=== PATIENT | female | born 1955 | race Caucasian/White ===

== ENCOUNTER → 2016-04-21 | Outpatient (CLI) | payer OTHER ==
[~2016-04-21] MED LIST: BUTA1TAB70 PO; CEPH500C2 PO; HYDR-5688 PO; IBUP-103 PO; LORA10CA2 PO; VITAMIN B12 PO; VITAMIN D PO; ZANTAC PO
--- NOTE | 2016-04-21 11:29 | Discharge Instructions ---
Discharge Instructions Procedure Procedure Date: Apr 21, 2016. Reason for visit: Bilateral Cals. Discharge Discharge Date: Apr 21, 2016. Discharge Diagnosis: post bilateral breast stereotactic guided biopsy Instructions Activity Recommendations: Additional Limitations (see below) Return to School/Work: no limitations Recommended Home Diet: No Limitations Provider Instructions: ACTIVITY RECOMMENDATIONS: * No lifting, pushing, pulling or exercising the affected side for three days. RETURN TO SCHOOL/WORK: * You may return to work/school after the procedure, but do not perform any strenuous activities for 24 to 48 hours. MEDICATIONS: * Tylenol (two 325 mg) every four to six hours if needed for mild pain (if not allergic to Tylenol). DIET: * Resume previous diet. SPECIAL CARE INSTRUCTIONS: * Keep biopsy site dry for 24 hours. May shower after 24 hours, but do not soak (bathe) incision. * May remove Tegaderm (plastic patch) tomorrow AFTER showering. * Leave the steri-strips on for one week. Allow the steri-strips to fall off by themselves. If not off after one week, you may remove them. You may place a Bandaid crosswise over the strips, if desired. * Apply ice 10 minutes on and 10 minutes off as needed. * Wear a bra at bedtime to sleep more comfortably for 2-3 days. * Your referring physician should have the results after approximately 5 to 7 business days. * Call for unusual bleeding, fever, drainage, etc or if you have any questions call [phone] during normal business hours or after hours call Dr Jacobs, . FOLLOW UP VISIT: Follow-up with Referring Physician as scheduled. Allergies Coded Allergies: No Known Allergies (Unverified , 03/25/16) Marisol Dobbins Recommendations: Call your doctor if: * Temperature above 101 degrees * Pain not relieved by pain medicine ordered * There is increased drainage or redness from any incision * You have any unanswered questions or concerns. Your Doctors Instructions noted above were prepared by provider Marce Jacobs. Patient Signature Section: Patient Instructions Signature Page Jessica Perez Patient (or Guardian) Signature/Date: I have read and understand the instructions given to me by my caregivers. Caregiver/RN/Doctor Signature/Date: The above-named patient and/or guardian has received patient instructions on this date. + Original Patient Signature Page (only) stays with chart. Please make copy for patient.
--- NOTE | 2016-04-23 08:29 | MAMMOGRAPHY REPORT ---
STEREOTACTIC GUIDED BIOPSY: 04/21/2016 CLINICAL HISTORY: Indeterminate clustered micro-calcifications in the lower outer left breast, and a pproximately 12:00 right breast. Patient presents for stereotactic guided biopsy in each breast. Please refer to the report from right breast stereotactic guided biopsy performed at the same time f or full detail. IMPRESSION: STEREOTACTIC GUIDED BIOPSY Please refer to the report from right breast stereotactic guided biopsy performed at the same time f or full detail. Marce Jacobs M.D. ay/:04/21/2016 11:58:17 Thread Reeler: Jany FERRARA(Armaan)(M), [facility]
--- NOTE | 2016-04-23 08:41 | MAMMOGRAPHY REPORT ---
ULTRASOUND OF BOTH BREASTS: 04/21/2016 CLINICAL HISTORY: Bilateral axillary ultrasound to assess for any abnormal lymphadenopathy. COMPARISON: Comparison is made to exams dated: 04/21/2016 mammogram, 04/21/2016 stereotactic biopsy, 04/06/2016 ultrasound biopsy, 03/24/2016 breast MRI - [facility], 09/23/2015 breast MRI, and 06/22/2014 mammogram - [facility]. FINDINGS: Real-time high-resolution ultrasound was performed in each axilla. Several morphologicall y normal lymph nodes within cortices are identified within the right axilla. However, there is one lymph node with a mildly thickened cortex that measures up to 3.9 mm. Near the right axillary tail that is suspicious for metastatic disease. Within the left axilla. Morphologically normal lymph no melisa are seen without evidence of suspicious adenopathy. IMPRESSION: ACR BI-RADS CATEGORY 6: KNOWN BIOPSY PROVEN MALIGNANCY Bilateral axillary ultrasound demonstrates a single lymph node in the right axilla with a cortex henna suring up to 3.9 mm, that is suspicious for metastatic disease. No other suspicious axillary lympha denopathy is identified on ultrasound. Marce Jacobs M.D. ay/:04/21/2016 12:17:35 Cathead Operator: Jany FERRARA(Armaan)(Abby), [facility] BI-RADS Code: ACR BI-RADS Category 6: Known Biopsy Proven Malignancy
--- NOTE | 2016-04-23 08:46 | MAMMOGRAPHY REPORT ---
BILATERAL DIGITAL DIAGNOSTIC MAMMOGRAM: 04/21/2016 CLINICAL HISTORY: Status post stereotactic guided biopsy of clustered microcalcifications within eac h breast. Current history of biopsy proven bilateral breast cancer. Please refer to the report from right breast stereotactic guided biopsy performed at the same time f or full detail. IMPRESSION: POST PROCEDURE IMAGING FOR MARKER PLACEMENT Please refer to the report from right breast stereotactic guided biopsy performed at the same time f or full detail. Approximately 10% of breast cancers are not detected with mammography. A negative mammographic repor t should not delay biopsy if a clinically suggestive mass is present. Marce Jacobs M.D. ay/:04/21/2016 11:59:29 Court Operations Clerk: Jany FERRARA(Armaan)(M), [facility] BI-RADS Code: Post Procedure Imaging For Marker Placement
== END | disposition home or self-care (01) ==
LOC: C.MAMM 09:19
PROVIDERS: ATTEND Surgery
DX: R92.1 Mammographic calcification found on diagnostic imaging of breast (principal); C50.912 Malignant neoplasm of unspecified site of left female breast

== ENCOUNTER → 2016-05-10 | Outpatient (CLI) | payer OTHER ==
[~2016-05-10] MED LIST changes: +CEFAZOLIN IV 2,000 MG/60 ML D5W IV ONE; +MED FOR ITCHING PO
--- NOTE | 2016-05-10 13:13 | DIAGNOSTIC IMAGING REPORT ---
PET/CT HISTORY: BREAST CANCER TECHNIQUE: PET/CT was performed from the base of the skull through the pelvis following the intravenous administration of 13.12 mCi of F18-FDG. Non-contrast CT imaging was performed over the same range without breath-hold for attenuation correction of PET images and anatomic correlation, but not for primary interpretation as it is not of standard diagnostic quality. CT DOSE: COMPARISON: None. FINDINGS: HEAD AND NECK: There are symmetric FDG uptake within the brain. Small focal areas of asymmetrically increased FDG uptake within the right adenoid and palatine tonsils seen on images 19 and 31. These demonstrate an SUV max of 3.4. There is mild fullness along the right palatine tonsil at this level. No enlarged or FDG avid cervical lymph nodes. CHEST: No enlarged or FDG avid mediastinal, hilar, or axillary lymph nodes. Patchy mild FDG uptake within the lateral aspect of the bilateral breasts, right greater the left. These demonstrate an SUV max within the right breast of 2.0. No FDG avid pulmonary nodules. There is a 4 mm subpleural nodular density within the right middle lobe on image 93. ABDOMEN/PELVIS: Below the diaphragm, tracer is distributed physiologically in the gastrointestinal and genitourinary tracts. There is no significant lymphadenopathy and no FDG-avid disease. No FDG avid hepatic or splenic lesions. Normal adrenal glands. MUSCULOSKELETAL: There is no FDG-avid or destructive bone lesion. A 6 mm sclerotic focus within the superior endplate of L5 does not demonstrate abnormal FDG uptake. Minimal patchy FDG uptake within the marrow of the spine and and pelvis may be physiologic. No focal areas of FDG uptake identified within the visualized osseous structures. IMPRESSION: 1. Mild FDG uptake seen within the lateral aspects of the breasts, right greater than left. This could be physiologic or related to recent biopsy changes. Underlying malignancy could also a similar appearance. Please correlate with recent mammography findings. 2. Mild FDG uptake seen within the right adenoid and palatine tonsils with mild fullness of the right palatine tonsil as described above. This could be due to mild infectious process. Direct visualization or at a minimum imaging follow up is recommended to ensure stability/resolution. 3. Minimal patchy FDG uptake within the marrow of the spine and pelvis without focal abnormality to suggest metastatic disease. 4. A 4 mm subpleural nodule within the right middle lobe. This does not demonstrate abnormal FDG uptake but is likely below the threshold for PET imaging. This also bears watching on future examinations. Electronically signed by: Marcelo Pa M.D. 05/10/2016 1:12 PM Dictated Date/Time: 05/10/2016 12:43 PM
== END | disposition home or self-care (01) ==
LOC: C.PET 10:09
PROVIDERS: ATTEND Internal Medicine Hematology & Oncology
DX: C50.411 Malignant neoplasm of upper-outer quadrant of right female breast (principal)

== ENCOUNTER 2016-05-17 08:41 | Inpatient (IN) | payer OTHER ==
[2016-05-06 14:19] VITALS: BMI 28.0
[2016-05-17] VITALS (7 sets, daily range): BP systolic 96–127; BP diastolic 59–89; PULSE 74–119; TEMP 36.4–36.9; O2SAT 95–100; Ht 165.1 cm; Wt 76.5 kg
[~2016-05-17] VITALS: Ht 165.1 cm; Wt 76.5 kg
[~2016-05-17 08:41] MED LIST changes: +CEFAZOLIN 2000 MG/60 ML D5W IV SCH; -CEFAZOLIN IV 2,000 MG/60 ML D5W IV ONE; -CEPH500C2 PO; +DEXAMETHASONE SOD INJ 4 MG/ML VIAL ONE; +EpHEDrine SULFATE INJ 50 MG/ML AMP ONE; +FENTANYL CITRATE INJ 50 MCG/1 ML 2 ML VIAL ONE; +GLYCOPYRROLATE INJ 0.2 MG/ML VIAL ONE; -HYDR-5688 PO; +LACTATED RINGER'S 1000ML 1,000 ML IV SCH; +LIDOCAINE HCL 2% 2 ML VIAL (20MG/ML) ONE; -LORA10CA2 PO; -MED FOR ITCHING PO; +MIDAZOLAM HCL 1 MG/ML 2ML VIAL ONE; +NEOSTIGMINE METHYLSULFATE 5 MG/5 ML SYR ONE; +ONDANSETRON INJ 2 MG/ML 2 ML VIAL ONE; +PHENYLEPHRINE HCL INJ 10 MG/ML VIAL ONE; +PROPOFOL IV EMULSION 10 MG/ML 20 ML VIAL IV ONE; +ROCURONIUM BROMIDE 10 MG/ML 5 ML VIAL ONE; +SUCCINYLCHOLINE CHLORIDE 20 MG/ML 10 ML VIAL IV ONE; -VITAMIN B12 PO; -VITAMIN D PO; -ZANTAC PO
[2016-05-17] MEDS ORDERED: NALOXONE HCL 0.4 MG/1 ML VIAL/CARP IV PRN (09:15)
[2016-05-17] MEDS ORDERED: ATROPINE SULFATE 0.1 MG/ML 5ML SYR IV PRN (09:15)
[2016-05-17] MEDS ORDERED: FLUMAZENIL 0.1 MG/1 ML 10 ML VIAL IV PRN (09:15)
[2016-05-17] MEDS ORDERED: LABETALOL HCL IV 5 MG/ML 20ML IV PRN (09:15)
[2016-05-17] MEDS ORDERED: PHENYLEPHRINE 100MCG/ML 5ML SYR IV PRN (09:15)
[2016-05-17] MEDS ORDERED: EpHEDrine SULFATE INJ 50 MG/ML AMP IV PRN (09:15)
[2016-05-17] MEDS ORDERED: ONDANSETRON INJ 2 MG/ML 2 ML VIAL IV PRN ×2 (09:15→13:15)
[2016-05-17] MEDS ORDERED: MEPERIDINE HCL 25 MG/ML CARP IV PRN (09:15)
[2016-05-17] MEDS ORDERED: FENTANYL CITRATE INJ 50 MCG/1 ML 2 ML VIAL IV PRN (09:15)
--- NOTE | 2016-05-17 09:51 | History & Physical Bridge Note ---
H&P Re-Evaluation Bridge Note: I have examined the patient, reviewed the History & Physical and in the interval since the performance of the History & Physical I have noted the following changes of clinical significance: No changes noted
[2016-05-17] MEDS ORDERED: BUPIVACAINE 0.5 % 5 MG/1 ML MPF 30ML VIAL ONE (10:08)
[2016-05-17] MEDS ORDERED: ISOSULFAN BLUE 10 MG/ML VIAL 5 ML ONE (10:09)
--- NOTE | 2016-05-17 10:19 | DIAGNOSTIC IMAGING REPORT ---
BILATERAL BREAST LYMPHOSCINTIGRAPHY CLINICAL HISTORY: Bilateral breast cancer. COMPARISON STUDY: PET CT May 10, 2016. PROCEDURE: Bilateral breast lymphoscintigraphy was performed. The procedure, risks and benefits were discussed with the patient. The patient agreed to the procedure. The procedure was performed by Dr. Saleh. Skin of each breast was prepped in sterile fashion. A total of 0.492 mCi of Lymphoseek was injected in 5 intradermal aliquots within the left periareolar region. A total of 0.483 mCi of Lymphoseek was injected in 5 intradermal aliquots within the right periareolar region. No imaging was requested at this time. The patient tolerated the procedure well. IMPRESSION: Bilateral breast lymphoscintigraphy, as described above. Electronically signed by: Kuldeep Saleh M.D. 05/17/2016 10:18 AM Dictated Date/Time: 05/17/2016 10:16 AM
[2016-05-17] MEDS ORDERED: FENTANYL CITRATE INJ 50 MCG/1 ML 2 ML VIAL ONE ×4 (10:32→13:10)
[2016-05-17] MEDS ORDERED: PROPOFOL IV EMULSION 10 MG/ML 20 ML VIAL IV ONE (11:01)
[2016-05-17] MEDS ORDERED: ONDANSETRON INJ 2 MG/ML 2 ML VIAL ONE (11:01)
[2016-05-17] MEDS ORDERED: GLYCOPYRROLATE INJ 0.2 MG/ML VIAL ONE (11:01)
[2016-05-17] MEDS ORDERED: DEXAMETHASONE SOD INJ 4 MG/ML VIAL ONE (11:02)
[2016-05-17] MEDS ORDERED: LIDOCAINE HCL 2% 2 ML VIAL (20MG/ML) ONE (11:02)
[2016-05-17] MEDS ORDERED: BUPIVACAINE 0.5 % 5 MG/1 ML MPF 30ML VIAL INJ ONE (12:34)
--- NOTE | 2016-05-17 13:08 | [facility] Operative Report ---
Operative Report Operative Date May 17, 2016. Pre-Operative Diagnosis Bilateral breast cancer Post-Operative Diagnosis same Procedure(s) Performed Bilateral mastectomy with Lt sentinel lymph node bx and Rt axillary dissection Surgeon Dr Henao Electronics Assembler Surgeon(s) Stu King PA-C Estimated Blood Loss 50ML Findings Lt SLN neg on frozen enlarged Rt axillary LNs Specimens C. RIGHT AXILLARY TISSUE. Drains 2- #15 Rd JPs to Rt chest and MIRIAN to Lt chest wound Anesthesia gen Complication(s) None Disposition Recovery Room / PACU I attest to the content of the Intraoperative Record and any orders documented therein. Any exceptions are noted below.
[2016-05-17] MEDS ORDERED: LACTATED RINGER'S 1000ML 1,000 ML IV SCH (13:09)
[2016-05-17] MEDS ORDERED: PROMETHAZINE HCL INJ 25 MG in SODIUM CHLORIDE 0.9% 50ML 50 ML IV PRN (13:15)
[2016-05-17] MEDS ORDERED: MoRPHine SULFATE 4 MG/ML 1 ML CARP\\VIAL IV PRN (13:15)
[2016-05-17] MEDS ORDERED: MoRPHine SULFATE 2 MG/ML CARP IV PRN (13:15)
--- NOTE | 2016-05-17 13:32 | OPERATIVE REPORT ---
DATE OF OPERATION: 05/17/2016 NAME OF OPERATION: Bilateral mastectomy with left sentinel lymph node biopsy and right axillary dissection. PREOPERATIVE DIAGNOSIS: Bilateral breast cancer. POSTOPERATIVE DIAGNOSIS: Same. STAFF SURGEON: Dr. Henao. DISTRICT TRAFFIC CHIEF: En King PA-C. PROCEDURE: The patient was brought in the operating room and placed on the operating table in supine position. Her arms were extended on arm boards. Her chest was prepped and draped bilaterally. She had a large breast cancer on the right side and a smaller one on the left. The left axilla was approached first using the Neoprobe, we made an incision using 0.5% plain Marcaine, carrying dissection down identifying the lymph node sending it for frozen section. During the frozen section, we proceeded with left mastectomy. Frozen section was negative. Elliptical incision was made around the nipple areolar complex from medial to lateral and then the breast tissue was dissected away from the subcutaneous tissue constructing superior and inferior chest wall flaps. The dissection was carried down to the pectoralis major muscle, removing the fascia and the breast. Vessels were oversewn using 2-0 chromic catgut suture and 2-0 silk suture. The site was irrigated and then a moist packing placed. A towel was used to cover the site. The right side was then approached initially. Incision was made in the lateral right chest, carrying dissection down into the axilla, identifying the axillary fat pad and dissecting the tissue free sending it for permanent section. The patient did have several very large lymph nodes, which were firm. At this point, incisions were made elliptically around the nipple areolar complex and then the breast tissue was dissected away from the subcutaneous tissue superiorly and inferiorly down to the chest wall and then removing the breast tissue from the pectoralis major muscle, taking the fascia and ligating vessels using 2-0 chromic catgut suture and 2-0 silk suture. A large tumor was palpable, although it did not appear to be invading into the muscle. At this point, the site was irrigated and then two #15 round Seun-Ha drains were placed into the right chest wound, one into the axilla, one to the chest wall itself, secured to the skin using 3-0 nylon suture. A single 15 round MIRIAN was placed into the chest wall wound on the left side, secured to the skin using 3-0 nylon suture. Subcutaneous tissue was reapproximated using 3-0 Vicryl suture. Skin was reapproximated using subcuticular 4-0 Monocryl and also 4-0 nylon. The left axillary skin was closed using 4-0 nylon suture. The drains were activated. Dressings applied and patient transferred to recovery room in stable condition. I attest to the content of the Intraoperative Record and any orders documented therein. Any exceptio ns are noted below.
[2016-05-17] MEDS: HYDROmorphone INJ 2 MG/ML SYR/VIAL IV PRN ×2 (13:44→14:00)
[2016-05-17] MEDS ORDERED: LORAZEPAM INJ 0.5 MG in SYRINGE 0.25 ML IV PRN (13:45)
[2016-05-17] MEDS ORDERED: DiphenhydrAMINE HCL 50 MG/ML VIAL ONE (13:51)
[2016-05-17] MEDS ORDERED: NURSING VERBAL MED ORDER ONE (14:00)
[2016-05-17] MEDS ORDERED: HYDROmorphone INJ 0.5 MG/0.5 ML SYR IV PRN (14:15)
--- NOTE | 2016-05-17 14:46 | Anesthesiology Progress Note ---
Anesthesia Post Op Note Date & Time May 17, 2016 at 14:46 Vital Signs Pain Intensity: 3 Vital Signs Past 12 Hours Date Time Temp Pulse Resp B/P Pulse Ox O2 Delivery O2 Flow Rate FiO2 05/17/16 13:18 35.9 80 11 116/68 100 Mask 15 05/17/16 09:25 36.8 88 125/89 95 Room Air Notes Mental Status: alert / awake / arousable, participated in evaluation Pt Amnestic to Procedure: Yes Nausea / Vomiting: adequately controlled Pain: adequately controlled Airway Patency, RR, SpO2: stable & adequate BP & HR: stable & adequate Hydration State: stable & adequate Anesthetic Complications: no major complications apparent
[2016-05-17] MEDS: HYDROmorphone INJ 1 MG/ML SYR IV PRN ×2 (16:45→21:34)
[2016-05-17] MEDS ORDERED: ACETAMINOPHEN IV 100 ML IV ONE (17:00)
[2016-05-17] MEDS: CEFAZOLIN IV 1,000 MG in DEXTROSE 5% 50ML 50 ML IV SCH (21:34)
--- NOTE | 2016-05-17 23:35 | CONSULTATION REPORT ---
DATE OF CONSULTATION: 05/17/2016 CHIEF COMPLAINT: Medical management status post bilateral breast cancer removal with left sentinel lymph node biopsy and right axillary dissection. We are consulted for medical management. HISTORY OF PRESENT ILLNESS: This is a 60-year-old female with a history of headache and bilateral breast cancer, admitted to the hospital for bilateral mastectomy with left sentinel lymph node biopsy and right axillary dissection, performed by Dr. Henao. Currently, the patient denies any complaints. REVIEW OF SYSTEMS: Negative except as above. Ten out of 14 systems were reviewed. SOCIAL HISTORY: Does not smoke, does not drink, and does not use drugs. FAMILY HISTORY: Significant for diabetes and cancer. HOME MEDICATIONS: Butalbital, acetaminophen, caffeine 1 tablet p.o. p.r.n. migraine, ibuprofen 400 mg p.o. p.r.n. ALLERGIES: She has no known allergies. PHYSICAL EXAMINATION: VITAL SIGNS: Temperature 36.6, heart rate 111, respiratory rate 18, blood pressure 108/67, pulse oximetry 98% on 4 liters nasal cannula. GENERAL: Not in acute distress. HEENT: Normocephalic, atraumatic. PERRLA, EOMI. Mouth moist, no lesions. NECK: No JVD. Trachea midline. Thyroid is not enlarged. LUNGS: Clear to auscultation bilateral. No wheezes, no rhonchi. HEART: Tachycardia; however, no murmurs. S1, S2. ABDOMEN: Soft, nontender, nondistended. Bowel sounds present bilateral. CHEST: Has occlusive dressing around her chest status post mastectomy, no drainage is present. EXTREMITIES: No clubbing, cyanosis, edema. LABORATORIES: Not available. Lymph nodes nuclear medicine study, bilateral breast lymphoscintigraphy done. ASSESSMENT AND PLAN: This is a 60-year-old female status post mastectomy. We are consulted for medical management. 1. Suspected sleep apnea. We will order nocturnal pulse ox. Currently, we will keep the patient on 4 liters nasal cannula to keep oxygenation above 89%. 2. Status post mastectomy. Management as per Dr. Henao. 3. Tachycardia, likely related to pain syndrome as well as status post anesthesia. The patient will need to be provided with adequate pain control in the form of [place] and Dilaudid as needed. 4. Deep venous thrombosis and gastrointestinal prophylaxis as per surgery. time spent 35 min Thank you for consulting our group. AALIYAH
[2016-05-18 00:06] VITALS: BP 94/55; PULSE 94; TEMP 37.2; O2SAT 96
[2016-05-18] MEDS: HYDROCODONE/ACETAMOPHEN 5/325MG TAB PO PRN ×3 (00:19→10:11)
[2016-05-18] MEDS: HYDROmorphone INJ 1 MG/ML SYR IV PRN ×2 (01:04→16:05)
[2016-05-18 03:55] VITALS: BP 100/62; PULSE 83; TEMP 37.2; O2SAT 95
[2016-05-18] MEDS: CEFAZOLIN IV 1,000 MG in DEXTROSE 5% 50ML 50 ML IV SCH ×4 (04:32→22:16)
--- NOTE | 2016-05-18 07:09 | Surgery Progress Note ---
Surgery Progress Note Date of Service May 18, 2016. Subjective Post OP Day: 1 No nausea, No vomiting intermittent pain- rec Dilaudid and [place] awake, alert Objective Vital Signs: Date Time Temp Pulse Resp B/P Pulse Ox O2 Delivery O2 Flow Rate FiO2 05/18/16 03:55 37.2 83 14 100/62 95 Room Air 05/18/16 00:06 37.2 94 16 94/55 96 Room Air 05/17/16 23:47 Room Air 05/17/16 22:12 36.7 113 18 113/69 95 Room Air 05/17/16 18:30 36.7 119 18 96/59 98 Nasal Cannula 4.0 05/17/16 17:30 36.6 111 18 108/67 99 Nasal Cannula 4.0 05/17/16 16:30 36.9 102 16 124/72 100 Nasal Cannula 4.0 05/17/16 16:00 36.4 74 16 127/80 96 Nasal Cannula 4.0 05/17/16 15:30 36.9 81 14 126/70 99 Nasal Cannula 4.0 05/17/16 15:30 99 Nasal Cannula 4.0 05/17/16 15:30 99 Nasal Cannula 4.0 05/17/16 15:15 84 11 97 05/17/16 15:15 81 11 05/17/16 15:13 115/79 05/17/16 15:10 81 10 95 05/17/16 15:10 79 10 05/17/16 15:05 82 7 05/17/16 15:05 83 7 97 05/17/16 15:04 73 13 05/17/16 15:04 74 13 97 05/17/16 14:59 68 15 100 05/17/16 14:59 69 15 05/17/16 14:58 132/77 05/17/16 14:54 74 16 05/17/16 14:54 73 16 96 05/17/16 14:49 77 16 100 05/17/16 14:49 77 16 05/17/16 14:45 36.0 77 12 149/79 100 Nasal Cannula 3 05/17/16 14:44 79 12 05/17/16 14:44 76 12 99 05/17/16 14:43 72 14 05/17/16 14:43 74 14 149/79 100 05/17/16 14:42 144/82 05/17/16 14:40 36.0 72 12 153/95 99 Nasal Cannula 3 05/17/16 14:38 72 14 153/95 100 05/17/16 14:38 70 14 05/17/16 14:33 82 13 129/90 100 05/17/16 14:33 86 13 05/17/16 14:28 72 12 133/87 100 05/17/16 14:28 75 12 05/17/16 14:23 64 14 139/78 100 05/17/16 14:23 64 14 05/17/16 14:19 155/97 05/17/16 14:18 65 9 05/17/16 14:18 65 9 149/101 98 05/17/16 14:13 64 15 05/17/16 14:13 64 15 141/94 100 05/17/16 14:08 59 13 144/93 100 05/17/16 14:08 59 13 05/17/16 14:03 59 17 128/79 100 05/17/16 14:03 58 17 05/17/16 13:58 53 12 05/17/16 13:58 54 12 143/86 100 05/17/16 13:53 55 15 05/17/16 13:53 54 15 138/82 100 05/17/16 13:49 131/76 05/17/16 13:48 60 17 100 05/17/16 13:48 59 17 05/17/16 13:43 59 18 05/17/16 13:43 58 18 146/92 100 05/17/16 13:38 61 18 05/17/16 13:38 58 18 100 05/17/16 13:34 116/75 05/17/16 13:33 62 14 05/17/16 13:33 62 14 100 05/17/16 13:28 53 10 05/17/16 13:28 53 10 147/87 100 05/17/16 13:23 54 10 05/17/16 13:23 54 10 139/84 100 05/17/16 13:18 35.9 80 11 116/68 100 Mask 15 05/17/16 13:18 60 12 116/68 96 05/17/16 13:18 59 12 05/17/16 09:25 36.8 88 125/89 95 Room Air Physical Exam: MIRIAN drainage (serosang , 15-20 cc/ shift) General Appearance: no apparent distress Respiratory/Chest: no respiratory distress Incision(s): dry, intact Laboratory Results: Results Past 24 Hours Test 05/18/16 06:52 Range/Units Assessment & Plan 05/18/16- s/p bilateral mastectomy- d/c jin, IV, cont atbx, cont pain meds try to mobilize pt- ambulate, PT, Soc serv consults- possible d/c 1-2 days- visiting nurse
[2016-05-18] MEDS ORDERED: INFLUENZA VIRUS QUAD VACCINE 0.5 ML SYR IM. ONE (08:00)
[2016-05-18] MEDS ORDERED: INFLUENZA ADMINISTRATION CHARGE ONE (08:00)
[2016-05-18 08:20] VITALS: BP 100/54; PULSE 75; TEMP 37.1; O2SAT 98
[2016-05-18 08:21] LABS: HEMATOCRIT 34.7 % (37-47); MEAN CELL VOLUME 94.8 fL (80-100); MEAN CORPUSCULAR HEMOGLOBIN 31.1 pg (25-34); MEAN CORPUSCULAR HGB CONC 32.9 g/dl (32-36); MEAN PLATELET VOLUME 10.4 fL (7.4-10.4); PLATELET COUNT 238 K/uL (130-400); RED BLOOD COUNT 3.66 M/uL (4.2-5.4); WHITE BLOOD COUNT 18.42 K/uL (4.8-10.8)
[2016-05-18 08:46] LABS: CALCIUM 9.4 mg/dl (8.5-10.1); CREATININE 0.82 mg/dl (0.60-1.20); POTASSIUM 3.9 mmol/L (3.5-5.1)
--- NOTE | 2016-05-18 14:15 | Progress Note ---
Subjective Date of Service: May 18, 2016. Subjective Pt evaluation today including: conversation w/ patient, physical exam, chart review, lab review, review of studies, review of inpatient medication list Review of Systems Constitutional: No chills, No fever Respiratory: No cough, No dyspnea on exertion, No shortness of breath, No sputum, No wheezing Cardiac: No chest pain, No orthopnea Abdomen: No constipation, No diarrhea, No nausea, No pain, No vomiting Musculoskeletal: No joint pain, No muscle pain Female : No dysuria, No urinary frequency Objective Vital Signs Date Time Temp Pulse Resp B/P Pulse Ox O2 Delivery O2 Flow Rate FiO2 05/18/16 10:39 Room Air 05/18/16 08:20 37.1 75 16 100/54 98 Room Air 05/18/16 03:55 37.2 83 14 100/62 95 Room Air 05/18/16 00:06 37.2 94 16 94/55 96 Room Air 05/17/16 23:47 Room Air 05/17/16 22:12 36.7 113 18 113/69 95 Room Air 05/17/16 18:30 36.7 119 18 96/59 98 Nasal Cannula 4.0 05/17/16 17:30 36.6 111 18 108/67 99 Nasal Cannula 4.0 05/17/16 16:30 36.9 102 16 124/72 100 Nasal Cannula 4.0 05/17/16 16:00 36.4 74 16 127/80 96 Nasal Cannula 4.0 05/17/16 15:30 36.9 81 14 126/70 99 Nasal Cannula 4.0 05/17/16 15:30 99 Nasal Cannula 4.0 05/17/16 15:30 99 Nasal Cannula 4.0 05/17/16 15:15 84 11 97 05/17/16 15:15 81 11 05/17/16 15:13 115/79 05/17/16 15:10 81 10 95 05/17/16 15:10 79 10 05/17/16 15:05 82 7 05/17/16 15:05 83 7 97 05/17/16 15:04 73 13 05/17/16 15:04 74 13 97 05/17/16 14:59 68 15 100 05/17/16 14:59 69 15 05/17/16 14:58 132/77 05/17/16 14:54 74 16 2/6/17 14:54 73 16 96 05/17/16 14:49 77 16 100 05/17/16 14:49 77 16 05/17/16 14:45 36.0 77 12 149/79 100 Nasal Cannula 3 05/17/16 14:44 79 12 05/17/16 14:44 76 12 99 05/17/16 14:43 72 14 05/17/16 14:43 74 14 149/79 100 05/17/16 14:42 144/82 05/17/16 14:40 36.0 72 12 153/95 99 Nasal Cannula 3 05/17/16 14:38 72 14 153/95 100 05/17/16 14:38 70 14 05/17/16 14:33 82 13 129/90 100 05/17/16 14:33 86 13 05/17/16 14:28 72 12 133/87 100 05/17/16 14:28 75 12 05/17/16 14:23 64 14 139/78 100 05/17/16 14:23 64 14 05/17/16 14:19 155/97 05/17/16 14:18 65 9 05/17/16 14:18 65 9 149/101 98 Physical Exam General Appearance: WD/WN, no apparent distress Neck: supple, no adenopathy Respiratory/Chest: chest non-tender, lungs clear, normal breath sounds Cardiovascular: no edema, no gallop Abdomen: non tender, soft Neurologic/Psychiatric: alert, oriented x 3 Laboratory Results Last 24 Hours Test 05/18/16 07:50 White Blood Count 18.42 K/uL Red Blood Count 3.66 M/uL Hemoglobin 11.4 g/dL Hematocrit 34.7 % Mean Corpuscular Volume 94.8 fL Mean Corpuscular Hemoglobin 31.1 pg Mean Corpuscular Hemoglobin Concent 32.9 g/dl RDW Standard Deviation 47.8 fL RDW Coefficient of Variation 13.7 % Platelet Count 238 K/uL Mean Platelet Volume 10.4 fL Sodium Level 141 mmol/L Potassium Level 3.9 mmol/L Chloride Level 106 mmol/L Carbon Dioxide Level 25 mmol/L Anion Gap 10.0 mmol/L Blood Urea Nitrogen 12 mg/dl Creatinine 0.82 mg/dl Est Creatinine Clear Calc Drug Dose 72.8 ml/min Estimated GFR () 88.9 Estimated GFR (Non- 76.7 BUN/Creatinine Ratio 14.0 Random Glucose 128 mg/dl Calcium Level 9.4 mg/dl Assessment and Plan This is a 60-year-old female status post mastectomy. We are consulted for medical management. 1. Suspected sleep apnea. Nocturnal pulse ox ordered. Significants desaturations overnight. Will qualify for O2 qHS. 2. Status post mastectomy. Management as per Dr. Henao. Cont antibx. 3. Tachycardia, likely related to pain syndrome as well as status post anesthesia. The patient will need to be provided with adequate pain control in the form of [place] and Dilaudid as needed. 4. Deep venous thrombosis and gastrointestinal prophylaxis as per surgery.
[2016-05-18] MEDS ORDERED: HYDR-5688 PO (15:06)
[2016-05-18] MEDS ORDERED: CEPH500C2 PO (15:06)
--- NOTE | 2016-05-18 15:11 | Discharge Instructions ---
Discharge Instructions Admission Reason for Admission: Bilateral Breast Cancer Discharge Discharge Diagnosis / Problem: breast cancer Discharge Goals Goal(s): Decrease discomfort, Improve function, Improve disease control Activity Recommendations Activity Limitations: as noted below Lifting Limitations: no more than 10 pounds Exercise/Sports Limitations: until after follow-up appointment May Resume Sexual Activity: when tolerated Shower/Bathe: tomorrow Driving or Machine Use: 1 week SPECIAL CARE INSTRUCTIONS: * Cover incisions and change daily for comfort/drainage. * Empty drain 2-3 times per day and record. * May use ibuprofen for pain as tolerated. * Expect some swelling and bruising. Call your doctor if: * Temperature above 101 degrees * Pain not relieved by pain medicine ordered * There is increased drainage or redness from any incision * You have any unanswered questions or concerns [phone]. FOLLOW UP VISIT: If not already scheduled, please call the office for a follow-up visit. for next week- wound/ drain check OFFICE PHONE NUMBER: Dr. Henao Office . Current Hospital Diet Patient's current hospital diet: Regular Diet Discharge Diet Recommended Diet: Regular Diet Procedures Procedures Performed: Bilateral Breast Mastectomy with Bilateral [place] Lymph Node Biopsy Pending Studies Studies pending at discharge: no Medical Emergencies . Who to Call and When: Medical Emergencies: If at any time you feel your situation is an emergency, please call 911 immediately. . Non-Emergent Contact Non-Emergency issues call your: Surgeon . "Provider Documentation" section prepared by Carlos Henao. VTE Core Measure Inpt VTE Proph given/why not?: SCD's
[2016-05-18 15:47] VITALS: BP 120/65; PULSE 72; TEMP 36.9; O2SAT 97
[2016-05-18] MEDS: HEPARIN SOD 5000 UNIT/0.5 ML CARP SQ SCH (17:00)
[2016-05-18 22:48] VITALS: BP 116/70; PULSE 98; TEMP 36.9; O2SAT 94
[2016-05-18] MEDS: LORAZEPAM INJ 0.5 MG in SYRINGE 0.75 ML IV PRN (23:44)
[2016-05-19] MEDS: CEFAZOLIN IV 1,000 MG in DEXTROSE 5% 50ML 50 ML IV SCH ×4 (04:16→21:54)
[2016-05-19] MEDS: HEPARIN SOD 5000 UNIT/0.5 ML CARP SQ SCH ×2 (05:21→17:06)
--- NOTE | 2016-05-19 06:28 | Surgery Progress Note ---
Surgery Progress Note Date of Service May 19, 2016. Subjective Post OP Day: 2 seems to be resting comfortably- not taking as much pain med moving well Objective Vital Signs: Date Time Temp Pulse Resp B/P Pulse Ox O2 Delivery O2 Flow Rate FiO2 05/19/16 00:00 Room Air 05/18/16 22:48 36.9 98 16 116/70 94 Room Air 05/18/16 15:47 36.9 72 16 120/65 97 Room Air 05/18/16 15:30 Room Air 05/18/16 10:39 Room Air 05/18/16 08:20 37.1 75 16 100/54 98 Room Air General Appearance: no apparent distress Respiratory/Chest: no respiratory distress Incision(s): dry, intact Laboratory Results: Results Past 24 Hours Test 05/18/16 07:50 05/19/16 04:44 Range/Units White Blood Count 18.42 4.8-10.8 K/uL Red Blood Count 3.66 4.2-5.4 M/uL Hemoglobin 11.4 12.0-16.0 g/dL Hematocrit 34.7 37-47 % Mean Corpuscular Volume 94.8 80-100 fL Mean Corpuscular Hemoglobin 31.1 25-34 pg Mean Corpuscular Hemoglobin Concent 32.9 32-36 g/dl RDW Standard Deviation 47.8 36.4-46.3 fL RDW Coefficient of Variation 13.7 11.5-14.5 % Platelet Count 238 130-400 K/uL Mean Platelet Volume 10.4 7.4-10.4 fL Sodium Level 141 136-145 mmol/L Potassium Level 3.9 3.5-5.1 mmol/L Chloride Level 106 98-107 mmol/L Carbon Dioxide Level 25 21-32 mmol/L Anion Gap 10.0 3-11 mmol/L Blood Urea Nitrogen 12 7-18 mg/dl Creatinine 0.82 0.60-1.20 mg/dl Est Creatinine Clear Calc Drug Dose 72.8 ml/min Estimated GFR () 88.9 Estimated GFR (Non- 76.7 BUN/Creatinine Ratio 14.0 10-20 Random Glucose 128 70-99 mg/dl Calcium Level 9.4 8.5-10.1 mg/dl Assessment & Plan 05/19/16- pain fairly well controlled- on IV atbx- wound/ drain care continues- pt may need one more day in hospital for supportive care- she does not live close by. 05/18/16- s/p bilateral mastectomy- d/c jin, IV, cont atbx, cont pain meds try to mobilize pt- ambulate, PT, Soc serv consults- possible d/c 1-2 days- visiting nurse 05/18/16- s/p bilateral mastectomy- d/c jin, IV, cont atbx, cont pain meds try to mobilize pt- ambulate, PT, Soc serv consults- possible d/c 1-2 days- visiting nurse
[2016-05-19 07:56] VITALS: BP 122/80; PULSE 56; TEMP 36.9; O2SAT 96
[2016-05-19 08:03] LABS: BASO % 0.2 %; BASO ABS # 0.02 K/uL (0-0.2); COMPLETE YES; EOS % 2.3 %; HEMATOCRIT 39.2 % (37-47); IG% 0.3 %; LYMPH % 26.1 %; LYMPH ABS # 3.11 K/uL (1.2-3.4); MEAN CELL VOLUME 93.8 fL (80-100); MEAN CORPUSCULAR HEMOGLOBIN 31.1 pg (25-34); MEAN CORPUSCULAR HGB CONC 33.2 g/dl (32-36); MEAN PLATELET VOLUME 10.4 fL (7.4-10.4); MONO % 7.2 %; NEUT % 63.9 %; PLATELET COUNT 237 K/uL (130-400); RED BLOOD COUNT 4.18 M/uL (4.2-5.4); WHITE BLOOD COUNT 11.92 K/uL (4.8-10.8)
[2016-05-19 09:15] VITALS: BP 126/88
[2016-05-19 09:18] VITALS: O2SAT 96
[2016-05-19] MEDS ORDERED: BISACODYL 5 MG TABEC PO PRN (10:45)
[2016-05-19] MEDS ORDERED: BISACODYL 5 MG TABEC PO ONE (10:45)
[2016-05-19] MEDS ORDERED: DOCUSATE SODIUM 100 MG CAP PO ONE (10:45)
[2016-05-19] MEDS ORDERED: DOCUSATE SODIUM 100 MG CAP PO PRN (10:45)
--- NOTE | 2016-05-19 10:46 | Progress Note ---
Subjective Date of Service: May 19, 2016. Subjective Pt evaluation today including: conversation w/ patient, physical exam, chart review, lab review, review of studies, conversation w/ bath design sales consultant, review of inpatient medication list Voiding: no voiding problems No complaining, report has constipation for several days, otherwise doing well Review of Systems Constitutional: No chills, No fatigue, No fever, No problem reported, No sweats , No weakness, No weight loss Eyes: No diplopia, No discharge, No eye pain, No redness, No worsening of vision ENT: No dental problems, No hearing loss, No nasal symptoms, No sore throat, No tinnitus, No trouble swallowing, No unusual epistaxis Respiratory: No cough, No dyspnea at rest, No dyspnea on exertion, No hemoptysis, No shortness of breath, No sputum, No wheezing Cardiac: No PND, No chest pain, No claudication, No edema, No orthopnea, No palpitations Abdomen: + constipation, No diarrhea, No nausea, No pain, No vomiting Musculoskeletal: No calf pain, No joint pain, No muscle pain, No swelling Female : No abnormal vaginal bleeding, No dysuria, No hematuria, No incontinence, No urinary frequency, No vaginal discharge Neurologic: No balance problems, No memory loss, No numbness/tingling, No paralysis, No vertigo, No weakness Psychiatric: No anhedonism, No anxiety, No depression symptoms, No insomnia, No substance abuse Heme: No abnormal bleeding/bruising, No clotting problems, No night sweats, No swollen lymph nodes Endo: No excessive thirst, No excessive urination, No fatigue Skin: No bleeding, No color change, No itch, No new/changing skin lesions, No rash Objective Vital Signs Date Time Temp Pulse Resp B/P Pulse Ox O2 Delivery O2 Flow Rate FiO2 05/19/16 09:39 Room Air 05/19/16 09:18 96 Room Air 05/19/16 09:15 126/88 05/19/16 07:56 36.9 56 16 122/80 96 Room Air 05/19/16 00:00 Room Air 05/18/16 22:48 36.9 98 16 116/70 94 Room Air 05/18/16 15:47 36.9 72 16 120/65 97 Room Air 05/18/16 15:30 Room Air 05/18/16 10:39 Room Air Physical Exam General Appearance: WD/WN, no apparent distress Eyes: normal inspection, PERRL, EOMI, sclerae normal ENT: normal ENT inspection, hearing grossly normal, pharynx normal Neck: supple, no adenopathy, thyroid normal, no JVD, no carotid bruits, trachea midline Respiratory/Chest: chest non-tender, lungs clear, normal breath sounds, no respiratory distress, no accessory muscle use Cardiovascular: regular rate, rhythm, no edema, no gallop, no JVD, no murmur Abdomen: normal bowel sounds, non tender, soft, no organomegaly, no pulsatile mass Extremities: normal range of motion, non-tender, normal inspection, no pedal edema, no calf tenderness, normal capillary refill, pelvis stable Neurologic/Psychiatric: 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, no motor/sensory deficits, alert, normal mood/affect, oriented x 3 Skin: normal color, warm/dry, no rash Lymphatic: no adenopathy Laboratory Results Last 24 Hours Test 05/19/16 07:40 White Blood Count 11.92 K/uL Red Blood Count 4.18 M/uL Hemoglobin 13.0 g/dL Hematocrit 39.2 % Mean Corpuscular Volume 93.8 fL Mean Corpuscular Hemoglobin 31.1 pg Mean Corpuscular Hemoglobin Concent 33.2 g/dl Platelet Count 237 K/uL Mean Platelet Volume 10.4 fL Neutrophils (%) (Auto) 63.9 % Lymphocytes (%) (Auto) 26.1 % Monocytes (%) (Auto) 7.2 % Eosinophils (%) (Auto) 2.3 % Basophils (%) (Auto) 0.2 % Neutrophils # (Auto) 7.62 K/uL Lymphocytes # (Auto) 3.11 K/uL Monocytes # (Auto) 0.86 K/uL Eosinophils # (Auto) 0.28 K/uL Basophils # (Auto) 0.02 K/uL RDW Standard Deviation 46.6 fL RDW Coefficient of Variation 13.6 % Immature Granulocyte % (Auto) 0.3 % Immature Granulocyte # (Auto) 0.03 K/uL Assessment and Plan 60-year-old female status post mastectomy. Hospitalist consulted for medical management. Status post mastectomy. Discharge plan, pain management, and follow-up plan will be managed as per Dr. Henao. Suspected sleep apnea. Nocturnal pulse ox ordered, I did not see formal report, but per note : Significants desaturations overnight. Will check to see if qualify for O2 qHS, will need to follow-up with PCP about this Tachycardia, likely related to pain syndrome as well as status post, resolved Constipation: We'll give Colace and Dulcolax as needed Deep venous thrombosis and gastrointestinal prophylaxis as per surgery. Continued [facility] stay due to: home environment unsafe for pt Discharge planning: home
[2016-05-19 12:15] VITALS: BP 118/84; PULSE 68; TEMP 36.5; O2SAT 97
[2016-05-19 15:34] VITALS: BP 112/77; PULSE 78; TEMP 37.2; O2SAT 95
[2016-05-19] MEDS: LORAZEPAM INJ 0.5 MG in SYRINGE 0.75 ML IV PRN (22:16)
[2016-05-19 23:17] VITALS: BP 135/73; PULSE 87; TEMP 37; O2SAT 98
[2016-05-20] MEDS: CEFAZOLIN IV 1,000 MG in DEXTROSE 5% 50ML 50 ML IV SCH (04:01)
[2016-05-20] MEDS ORDERED: HEPARIN SOD 5000 UNIT/0.5 ML CARP SQ SCH (06:00)
[2016-05-20 07:24] LABS: BASO % 0.4 %; BASO ABS # 0.04 K/uL (0-0.2); COMPLETE YES; EOS % 2.2 %; HEMATOCRIT 40.4 % (37-47); IG% 0.2 %; LYMPH % 29.8 %; LYMPH ABS # 2.93 K/uL (1.2-3.4); MEAN CELL VOLUME 93.5 fL (80-100); MEAN CORPUSCULAR HEMOGLOBIN 31.3 pg (25-34); MEAN CORPUSCULAR HGB CONC 33.4 g/dl (32-36); MEAN PLATELET VOLUME 10.5 fL (7.4-10.4); MONO % 7.6 %; NEUT % 59.8 %; PLATELET COUNT 258 K/uL (130-400); RED BLOOD COUNT 4.32 M/uL (4.2-5.4); WHITE BLOOD COUNT 9.83 K/uL (4.8-10.8)
--- NOTE | 2016-05-20 07:25 | DISCHARGE SUMMARY ---
PRINCIPAL DIAGNOSIS: Bilateral breast cancer. PROCEDURES: The patient underwent bilateral mastectomy with drain placement. HISTORY OF PRESENT ILLNESS: The patient is a 60-year-old female who has had biopsy proven breast cancer of both breasts, brought into the hospital for bilateral mastectomy. The patient was brought into the hospital on 05/17/2016 where she underwent bilateral mastectomy with right axillary dissection and left sentinel lymph node biopsy. She had drains placed. She has done very well postoperatively, although did require some oxygen and there may be some consideration of sending her home on home O2. She will be discharged today to home with a visiting nurses and also to be seen in the surgical clinic within 1 week. She also is being followed by oncology and will be followed up by radiation oncology.
[2016-05-20 08:07] VITALS: BP 110/69; PULSE 74; TEMP 36.6; O2SAT 98
--- NOTE | 2016-05-20 10:18 | Discharge Instructions ---
Discharge Instructions Admission Reason for Admission: Bilateral Breast Cancer Discharge Discharge Diagnosis / Problem: possible obstructive sleep apnea Discharge Goals Goal(s): Decrease discomfort, Improve function Activity Recommendations Activity Limitations: resume your previous activity . Instructions / Follow-Up Instructions / Follow-Up you have had mastectomy. you need to follow up with Dr. Henao as instructed you possible have sleep apnea. Nocturnal pulse evaluation was done cih showed need O2 on when sleep I give Rx of Home O2 set up you need to follow up with pCP for sleep studies for possible obstructive sleep apnea call to pcp if have any questions Current Hospital Diet Patient's current hospital diet: Regular Diet Discharge Diet Recommended Diet: Regular Diet Procedures Procedures Performed: Bilateral Breast Mastectomy with Bilateral [employer] Lymph Node Biopsy Pending Studies Studies pending at discharge: no Laboratory Results Meds Administered (Past 24Hrs) Medications (Trade) Dose Ordered Sig/Jessy Route Start Time Stop Time Status Last Admin Dose Admin Heparin Sodium (Porcine) (Heparin Sq 5000 Unit/0.5ml) 5,000 unit Q12@0500,1700 SQ 05/18/16 17:00 05/19/16 23:26 DC 05/19/16 17:06 5,000 UNIT Docusate Sodium (coLACE CAP) 100 mg NOW ONCE PO 05/19/16 10:45 05/19/16 11:07 DC 05/19/16 12:05 100 MG Bisacodyl (Dulcolax Tab) 5 mg NOW ONCE PO 05/19/16 10:45 05/19/16 11:07 DC 05/19/16 12:05 5 MG Heparin Sodium (Porcine) (Heparin Sq 5000 Unit/0.5ml) 5,000 unit Q12@0600,1800 SQ 05/20/16 06:00 06/19/16 05:59 05/20/16 06:05 5,000 UNIT Medical Emergencies . Who to Call and When: Medical Emergencies: If at any time you feel your situation is an emergency, please call 911 immediately. . Non-Emergent Contact Non-Emergency issues call your: Primary Care Provider . . "Provider Documentation" section prepared by Ned Wilkins. VTE Core Measure Inpt VTE Proph given/why not?: SCD's
[2016-05-20] MEDS: HYDROCODONE/ACETAMOPHEN 5/325MG TAB PO PRN (12:48)
--- NOTE | 2016-05-20 12:50 | Progress Note ---
Subjective Date of Service: May 20, 2016. Subjective Pt evaluation today including: conversation w/ patient, physical exam, chart review, lab review, review of studies, conversation w/ client experience consultant, review of inpatient medication list Continue doing well, no complaining, Review of Systems Constitutional: No chills, No fatigue, No fever, No problem reported, No sweats , No weakness, No weight loss Eyes: No diplopia, No discharge, No eye pain, No redness, No worsening of vision ENT: No dental problems, No hearing loss, No nasal symptoms, No sore throat, No tinnitus, No trouble swallowing, No unusual epistaxis Respiratory: No cough, No dyspnea at rest, No dyspnea on exertion, No hemoptysis, No shortness of breath, No sputum, No wheezing Cardiac: No PND, No chest pain, No claudication, No edema, No orthopnea, No palpitations Abdomen: No constipation, No diarrhea, No nausea, No pain, No vomiting Musculoskeletal: No calf pain, No joint pain, No muscle pain, No swelling Female : No abnormal vaginal bleeding, No dysuria, No hematuria, No incontinence, No urinary frequency, No vaginal discharge Neurologic: No balance problems, No memory loss, No numbness/tingling, No paralysis, No vertigo, No weakness Psychiatric: No anhedonism, No anxiety, No depression symptoms, No insomnia, No substance abuse Heme: No abnormal bleeding/bruising, No clotting problems, No night sweats, No swollen lymph nodes Endo: No excessive thirst, No excessive urination, No fatigue Skin: No bleeding, No color change, No itch, No new/changing skin lesions, No rash Objective Vital Signs Date Time Temp Pulse Resp B/P Pulse Ox O2 Delivery O2 Flow Rate FiO2 05/20/16 09:01 Room Air 05/20/16 08:07 36.6 74 16 110/69 98 Room Air 05/19/16 23:20 Room Air 05/19/16 23:17 37.0 87 15 135/73 98 Room Air 05/19/16 16:00 Room Air 05/19/16 15:34 37.2 78 16 112/77 95 Room Air Physical Exam General Appearance: WD/WN, no apparent distress Eyes: normal inspection, PERRL, EOMI, sclerae normal ENT: normal ENT inspection, hearing grossly normal, pharynx normal Neck: supple, no adenopathy, thyroid normal, no JVD, no carotid bruits, trachea midline Respiratory/Chest: chest non-tender, lungs clear, normal breath sounds, no respiratory distress, no accessory muscle use, + pertinent finding (bilateral breasts in dress,) Cardiovascular: regular rate, rhythm, no edema, no gallop, no JVD, no murmur Abdomen: normal bowel sounds, non tender, soft, no organomegaly, no pulsatile mass Extremities: normal range of motion, non-tender, normal inspection, no pedal edema, no calf tenderness, normal capillary refill, pelvis stable Neurologic/Psychiatric: 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, no motor/sensory deficits, alert, normal mood/affect, oriented x 3 Skin: normal color, warm/dry, no rash Lymphatic: no adenopathy Laboratory Results Last 24 Hours Test 05/20/16 06:59 White Blood Count 9.83 K/uL Red Blood Count 4.32 M/uL Hemoglobin 13.5 g/dL Hematocrit 40.4 % Mean Corpuscular Volume 93.5 fL Mean Corpuscular Hemoglobin 31.3 pg Mean Corpuscular Hemoglobin Concent 33.4 g/dl Platelet Count 258 K/uL Mean Platelet Volume 10.5 fL Neutrophils (%) (Auto) 59.8 % Lymphocytes (%) (Auto) 29.8 % Monocytes (%) (Auto) 7.6 % Eosinophils (%) (Auto) 2.2 % Basophils (%) (Auto) 0.4 % Neutrophils # (Auto) 5.87 K/uL Lymphocytes # (Auto) 2.93 K/uL Monocytes # (Auto) 0.75 K/uL Eosinophils # (Auto) 0.22 K/uL Basophils # (Auto) 0.04 K/uL RDW Standard Deviation 46.1 fL RDW Coefficient of Variation 13.4 % Immature Granulocyte % (Auto) 0.2 % Immature Granulocyte # (Auto) 0.02 K/uL Assessment and Plan 60-year-old female status post mastectomy. Stable Hospitalist consulted for medical management. Status post mastectomy. Discharge plan, pain management, and follow-up plan will be managed as per Dr. Henao. Suspected sleep apnea. Nocturnal pulse ox ordered,which showed Significants desaturations overnight. Tachycardia, likely related to pain syndrome as well as status post, resolved Constipation: We'll give Colace and Dulcolax as needed Deep venous thrombosis and gastrointestinal prophylaxis as per surgery. Instructions / Follow-Up you have had mastectomy. you need to follow up with Dr. Henao as instructed you possible have sleep apnea. Nocturnal pulse evaluation was done [facility] [place] showed need O2 on when sleep I give Rx of Home O2 set up you need to follow up with pCP for sleep studies for possible obstructive sleep apnea call to pcp if have any questions Continued [facility] stay due to: home environment unsafe for pt Discharge planning: home
[2016-05-20 12:53] VITALS: BP 110/69; PULSE 74; TEMP 36.6; O2SAT 98
== END 2016-05-20 14:37 | disposition home health service (06) | DRG 581 ==
LOC: ENRESERVTM → ENRESERVDT → C.ACU 08:41 → C.MSN 13:13
PROVIDERS: ADMIT Surgery; ATTEND Surgery
PROC: 07B60ZX Excision of Left Axillary Lymphatic, Open Approach, Diagnostic (ICD-10-PCS; principal; 2016-05-17 10:00)
PROC: 0HTV0ZZ Resection of Bilateral Breast, Open Approach (ICD-10-PCS; principal; 2016-05-17 10:00)
PROC: 07B50ZX Excision of Right Axillary Lymphatic, Open Approach, Diagnostic (ICD-10-PCS; principal; 2016-05-17 10:00)
DX: C50.911 Malignant neoplasm of unspecified site of right female breast (principal); C50.912 Malignant neoplasm of unspecified site of left female breast; G47.30 Sleep apnea, unspecified; R00.0 Tachycardia, unspecified; K59.00 Constipation, unspecified

== ENCOUNTER → 2016-09-24 | Outpatient (CLI) | payer OTHER ==
[~2016-09-24] MED LIST changes: -CEFAZOLIN 2000 MG/60 ML D5W IV SCH; +CEPH500C2 PO; -DEXAMETHASONE SOD INJ 4 MG/ML VIAL ONE; -EpHEDrine SULFATE INJ 50 MG/ML AMP ONE; -FENTANYL CITRATE INJ 50 MCG/1 ML 2 ML VIAL ONE; -GLYCOPYRROLATE INJ 0.2 MG/ML VIAL ONE; +HYDR-5688 PO; -LACTATED RINGER'S 1000ML 1,000 ML IV SCH; -LIDOCAINE HCL 2% 2 ML VIAL (20MG/ML) ONE; -MIDAZOLAM HCL 1 MG/ML 2ML VIAL ONE; -NEOSTIGMINE METHYLSULFATE 5 MG/5 ML SYR ONE; -ONDANSETRON INJ 2 MG/ML 2 ML VIAL ONE; -PHENYLEPHRINE HCL INJ 10 MG/ML VIAL ONE; -PROPOFOL IV EMULSION 10 MG/ML 20 ML VIAL IV ONE; -ROCURONIUM BROMIDE 10 MG/ML 5 ML VIAL ONE; -SUCCINYLCHOLINE CHLORIDE 20 MG/ML 10 ML VIAL IV ONE
--- NOTE | 2016-09-24 13:25 | MAMMOGRAPHY REPORT ---
ASPIRATION LEFT BREAST: 09/24/2016 CLINICAL HISTORY: Large fluid collection at the left mastectomy bed with associated discomfort. PATIENT CONSENT: The procedure and risks of ultrasound-guided aspiration were discussed in full with the patient. Both oral and written consents were obtained. PROCEDURE DESCRIPTION: With ultrasound guidance, aseptic technique, and 1% lidocaine as a local anest hetic, aspiration was performed of the large fluid collection at the left mastectomy bed. Approximat gurdeep 270 mL of clear yellow non-purulent fluid was aspirated. Some of the fluid was sent to cytology for Gram stain, culture, and cytology. The fluid collection significantly decreased in size, with a small residual thin fluid collection noted after aspiration, with residual fluid collection measuring up to 4 mm in anterior to posterior dimension, previously measuring up to 3.9 cm. Direct pressure wa s applied to the site immediately post procedure and hemostasis was achieved. The patient tolerated the procedure without complication. COMPARISON: Comparison is made to exams dated: 09/24/2016 ultrasound and 04/21/2016 ultrasound - [facility]. IMPRESSION: ASPIRATION Ultrasound-guided aspiration of the large fluid collection at the left mastectomy bed, with approxima tely 270 mL of non-purulent yellow fluid removed. A sample of the fluid was sent for Gram stain, cul ture, and cytology. The patient will receive results from her referring provider. Karolina Garner M.D. /:09/24/2016 10:38:33 Integrated Pest Management Technician: Karolina Garner MD, [facility]
--- NOTE | 2016-09-24 13:25 | MAMMOGRAPHY REPORT ---
ULTRASOUND OF LEFT BREAST: 09/24/2016 CLINICAL HISTORY: The patient reports she had a mastectomy May 2016, and has noticed increased s welling and discomfort at her left mastectomy bed for approximately 2 weeks. She was placed on antib iotics and the swelling has not improved. She denies any skin erythema. COMPARISON: Comparison is made to exams dated: 04/21/2016 ultrasound, 04/21/2016 stereotactic biopsy, 04/21/2016 mammogram, 04/21/2016 stereotactic biopsy, 04/06/2016 ultrasound biopsy, and 04/06/2016 [facility]. TECHNIQUE: Real-time targeted ultrasound was performed of the left mastectomy bed. FINDINGS: Real-time, high-resolution ultrasound was performed of the left mastectomy bed involving a ll 4 quadrants. There is a large anechoic fluid collection involving all 4 quadrants, which contains some thin internal septations. The fluid collection is too large to measure on ultrasound but measu res up to 3.9 cm in anterior to posterior dimension. This likely represents a postoperative seroma/h ematoma. There is edema in the surrounding soft tissues and skin. IMPRESSION: ACR BI-RADS CATEGORY 2: BENIGN Large fluid collection throughout the left mastectomy bed, which is benign and likely represents a po stsurgical seroma/hematoma. There is no sonographic evidence of malignancy. Recommend ultrasound-gu ided aspiration for symptomatic relief and to exclude the possibility of infection. The patient was verbally notified of the results. The aspiration was performed immediately after the ultrasound exam. Karolina Garner M.D. /:09/24/2016 10:35:06 Desulfurizer Machine: Karolina Garner MD, [facility] BI-RADS Code: ACR BI-RADS Category 2: Benign
== END | disposition home or self-care (01) ==
LOC: C.MAMM 09:23
PROVIDERS: ATTEND Internal Medicine Hematology & Oncology
DX: N63 Unspecified lump in breast (principal); Z90.12 Acquired absence of left breast and nipple